=== PATIENT | female | born 1965 | race African-American/Black ===

== ENCOUNTER 2016-05-22 11:03 | Inpatient (IN) | payer MEDICAID ==
[~2016-05-22] VITALS: Ht 167.6 cm; Wt 76.2 kg
[2016-05-22 12:11] LABS: UCG SCREEN NEGATIVE
[2016-05-22] MEDS ORDERED: LACTATED RINGERS 1,000 ML IV SCH (12:15)
[2016-05-22] MEDS ORDERED: GABA800T97 PO (12:21)
[2016-05-22] MEDS ORDERED: FERR-63 PO (12:21)
[2016-05-22] MEDS ORDERED: FLUT9.9S NS (12:21)
[2016-05-22] MEDS ORDERED: LORA-249 PO (12:21)
[2016-05-22] MEDS ORDERED: ZOLP5TAB2 PO (12:21)
[2016-05-22] MEDS ORDERED: IBUP-2029 PO (12:21)
[2016-05-22] MEDS ORDERED: ESCI20TA PO (12:21)
[2016-05-22] MEDS ORDERED: NITR100C2 PO (12:21)
[2016-05-22] MEDS ORDERED: OMEP20TA80 PO (12:21)
[2016-05-22] MEDS ORDERED: ONDANSETRON HCL 4MG/2ML VIAL IV PRN (13:00)
[2016-05-22] MEDS ORDERED: HYDROMORPHONE HCL/PF 2MG/ML CPJ IV PRN (13:00)
[2016-05-22] MEDS ORDERED: PROPOFOL 200MG/20ML VIAL IV ONE (13:10)
[2016-05-22] MEDS ORDERED: FENTANYL CITRATE/PF 50MCG/ML 5ML VIAL ONE (13:11)
[2016-05-22] MEDS ORDERED: LIDOCAINE HCL 1% 20ML VIAL (Pyxis) INJ ONE (13:11)
[2016-05-22] MEDS ORDERED: MIDAZOLAM HCL 2 MG/2 ML VIAL ONE (13:11)
[2016-05-22] MEDS ORDERED: ROCURONIUM BROMIDE 10MG/ML VIAL 5ML IV ONE ×2 (13:13→14:40)
[2016-05-22] MEDS ORDERED: CEFAZOLIN SODIUM 1000MG/VIAL ONE (13:14)
[2016-05-22] MEDS ORDERED: DEXAMETHASONE 4MG/ML 1ML VIAL ONE (13:14)
[2016-05-22] MEDS ORDERED: BUPIVACAINE HCL 0.5% (5MG/ML) 50ML ONE (14:13)
[2016-05-22] MEDS ORDERED: ONDANSETRON HCL 4MG/2ML VIAL ONE (14:32)
[2016-05-22] MEDS ORDERED: METOCLOPRAMIDE HCL 10MG/2ML VIAL ONE (14:32)
[2016-05-22] MEDS ORDERED: FENTANYL CITRATE/PF 50MCG/ML 2ML VIAL ONE (14:44)
[2016-05-22] MEDS ORDERED: GLYCOPYRROLATE 0.2 MG/ML 2ML VIAL ONE (15:58)
[2016-05-22] MEDS ORDERED: NEOSTIGMINE METHYLSULFATE 1MG/ML 10 ML VIAL ONE (15:58)
[2016-05-22] MEDS ORDERED: ONDANSETRON INJ IV PRN (16:15)
[2016-05-22] MEDS ORDERED: DIPHENHYDRAMINE INJ IV PRN (16:15)
[2016-05-22] MEDS ORDERED: HYDROMORPHONE PCA 10MG/50ML IV PRN (16:15)
[2016-05-22] MEDS ORDERED: NALOXONE INJ IV PRN (16:15)
[2016-05-22] MEDS ORDERED: BACITRACIN ZINC 15GM TUBE TOP ONE (16:17)
[2016-05-22] MEDS ORDERED: HYDROMORPHONE HCL/PF 2MG/ML (OR) ONE (16:25)
[2016-05-22] MEDS: FENTANYL CITRATE/PF 50MCG/ML 2ML VIAL IV PRN ×3 (17:42→18:13)
[2016-05-22] MEDS ORDERED: HYDROMORPHONE PCA 50 ML IV PRN (18:23)
[2016-05-22] MEDS ORDERED: DIPHENHYDRAMINE 50MG/ML VIAL IV PRN (18:30)
[2016-05-22 21:50] VITALS: BP 134/89
[2016-05-22] MEDS: ONDANSETRON HCL 4MG/2ML VIAL IV PRN (22:16)
[2016-05-23] VITALS (7 sets, daily range): BP systolic 114–160; BP diastolic 64–96
[2016-05-23] MEDS: ONDANSETRON HCL 4MG/2ML VIAL IV PRN (05:45)
[2016-05-23] MEDS ORDERED: KETOROLAC 30MG/ML VIAL IV NR (06:00)
[2016-05-23 06:18] LABS: BASOPHILS % 0.4 % (0.0-2.0); EOSINOPHILS % 0.6 % (0.0-5.0); HEMATOCRIT. 32.5 % (36.0-48.0); HEMOGLOBIN. 10.6 g/dL (12.0-16.0); LYMPHOCYTES % 18.3 % (20.0-50.0); MEAN CORPUSCULAR HGB CONC 32.7 g/dL (31.0-37.0); MEAN CORPUSCULAR VOLUME 88.9 fL (81.0-99.0); MEAN PLATELET VOLUME 7.8 fl (7.4-10.4); MONOCYTES % 8.5 % (2.0-8.0); NEUTROPHILS % 72.2 % (40.0-76.0); PLATELET 250 x1000/uL (130-400); RED BLOOD CELL COUNT 3.65 mill/uL (4.2-5.4); RED CELL DISTRIBUTION WIDTH 15.8 % (11.6-14.6); WHITE BLOOD COUNT 6.4 x1000/uL (4.5-11.0)
[2016-05-23] MEDS ORDERED: ACETAMINOPHEN 325MG TABLET PO PRN (08:45)
[2016-05-23] MEDS: FLUTICASONE PROPIONATE 50MCG/SPRAY BOTTLE BOTHNSTRLS SCH (09:00)
[2016-05-23] MEDS: GABAPENTIN 300MG CAPSULE PO SCH ×3 (11:49→21:09)
[2016-05-23] MEDS: DOCUSATE SODIUM 250MG CAPSULE PO SCH ×2 (11:49→17:00)
[2016-05-23] MEDS: OMEPRAZOLE 20MG CAPSULE EXTENDED RELEASE PO SCH (11:49)
[2016-05-23] MEDS: METOCLOPRAMIDE HCL 10MG TABLET PO SCH ×3 (11:49→23:07)
[2016-05-23] MEDS: IBUPROFEN 800MG TABLET PO SCH ×2 (13:23→21:09)
[2016-05-23] MEDS: ACETAMINOPHEN WITH CODEINE 300/30MG TABLET PO PRN ×3 (14:21→22:37)
[2016-05-23] MEDS: ZOLPIDEM TARTRATE 5MG TABLET PO PRN (21:09)
[2016-05-23] MEDS: LORAZEPAM 0.5MG TABLET PO PRN (22:35)
[2016-05-24] VITALS: BP 135/80
[2016-05-24 04:00] VITALS: BP 133/86
[2016-05-24] MEDS: ACETAMINOPHEN WITH CODEINE 300/30MG TABLET PO PRN ×3 (05:26→16:59)
[2016-05-24] MEDS: METOCLOPRAMIDE HCL 10MG TABLET PO SCH ×3 (06:07→16:59)
[2016-05-24] MEDS: IBUPROFEN 800MG TABLET PO SCH ×3 (06:07→22:18)
[2016-05-24] MEDS: GABAPENTIN 300MG CAPSULE PO SCH ×3 (06:07→22:19)
[2016-05-24] MEDS: OMEPRAZOLE 20MG CAPSULE EXTENDED RELEASE PO SCH (06:13)
[2016-05-24 08:00] VITALS: BP 122/69
[2016-05-24] MEDS: FLUTICASONE PROPIONATE 50MCG/SPRAY BOTTLE BOTHNSTRLS SCH (08:17)
[2016-05-24] MEDS: DOCUSATE SODIUM 250MG CAPSULE PO SCH ×2 (08:17→16:58)
[2016-05-24 16:57] VITALS: BP 122/75
[2016-05-24] MEDS ORDERED: MAGNESIUM HYDROXIDE 400MG/5ML 30ML UDC PO PRN (18:00)
[2016-05-24 20:00] VITALS: BP 128/83
[2016-05-24] MEDS: ZOLPIDEM TARTRATE 5MG TABLET PO PRN (22:29)
[2016-05-25] VITALS: BP 118/70
[2016-05-25] MEDS: METOCLOPRAMIDE HCL 10MG TABLET PO SCH ×3 (00:22→13:51)
[2016-05-25] MEDS: LORAZEPAM 0.5MG TABLET PO PRN (00:22)
[2016-05-25 04:00] VITALS: BP 136/85
[2016-05-25] MEDS: GABAPENTIN 300MG CAPSULE PO SCH ×2 (05:00→14:27)
[2016-05-25] MEDS: IBUPROFEN 800MG TABLET PO SCH ×2 (05:03→13:50)
[2016-05-25 08:00] VITALS: BP 114/68
[2016-05-25] MEDS: DOCUSATE SODIUM 250MG CAPSULE PO SCH (08:50)
[2016-05-25] MEDS: FLUTICASONE PROPIONATE 50MCG/SPRAY BOTTLE BOTHNSTRLS SCH (08:50)
[2016-05-25] MEDS ORDERED: FAMOTIDINE 20MG TABLET PO SCH (09:00)
[2016-05-25] MEDS ORDERED: BISACODYL 5MG TABLET PO PRN (09:45)
[2016-05-25 09:54] VITALS: BP 114/68
[2016-05-25 12:00] VITALS: BP 130/67
[2016-05-25 13:57] VITALS: BP 114/68
== END 2016-05-25 14:30 | disposition home or self-care (01) | DRG 513 ==
LOC: OR 11:03 → 8WST 20:00
PROVIDERS: ADMIT Obstetrics & Gynecology; ATTEND Obstetrics & Gynecology
PROC: 0UTC0ZZ Resection of Cervix, Open Approach (ICD-10-PCS; 2016-05-22)
PROC: 0UT90ZZ Resection of Uterus, Open Approach (ICD-10-PCS; principal; 2016-05-22 13:30)
DX: N80.0 Endometriosis of uterus (principal); D25.9 Leiomyoma of uterus, unspecified; D64.9 Anemia, unspecified; F41.9 Anxiety disorder, unspecified; G89.29 Other chronic pain; I34.0 Nonrheumatic mitral (valve) insufficiency; K21.9 Gastro-esophageal reflux disease without esophagitis; K58.9 Irritable bowel syndrome, unspecified; M51.26 Other intervertebral disc displacement, lumbar region; K44.9 Diaphragmatic hernia without obstruction or gangrene; N92.3 Ovulation bleeding; N95.1 Menopausal and female climacteric states; Z98.51 Tubal ligation status
CPT/HCPCS: 36415; 81025; 85025; 86850; 86900; 86920; 88307; J0690; J1100; J1170; J1885; J2250; J2405; J2704; J2710; J2765; J3010; J3490; J7030; J7040; J7060; J8597